=== PATIENT | female | born 1995 ===

== ENCOUNTER 2024-03-11 14:45 | Oncology outpatient (recurring) (ONCR) | payer MEDICARE, SELFPAY ==
[2024-03-01 09:49] LABS: Basophils % 0.4 %; Eosinophils # 0.1 10^3/uL (0.0-0.8); Eosinophils % 1.7 %; Hematocrit 39.2 % (36-47); Lymphocytes # 2.5 10^3/uL (0.8-4.8); Lymphocytes % 36.5 %; Mean Corpuscular HGB Conc 33.2 g/dL (30-55); Mean Corpuscular Hemoglobin 29.9 pg (27-33); Mean Corpuscular Volume 90.1 fl (85-98); Mean Platelet Volume 9.7 fL (7.4-10.4); Monocytes # 0.3 10^3/uL (0.2-0.9); Monocytes % 4.9 %; Neutrophils % 56.2 %; Nucleated Red Blood Cells % 0 %; Platelet Count 272 10^3/cmm (157-399); Red Blood Count 4.35 10^6/uL (3.85-5.65); White Blood Count 6.94 10^3/uL (3.29-11.43)
[2024-03-01 10:23] LABS: INR 0.91 (0.8-1.2); Partial Thromboplastin Time 27.7 SECONDS (23.9-36.7)
[2024-03-01 10:34] LABS: Alanine Aminotransferase 11 U/L (0-33); Albumin Level 4.2 g/dL (3.5-5.2); Alkaline Phosphatase 53 U/L (35-105); Anion Gap 17.3 (5-19); Aspartate Amino Transferase 13 U/L (0-32); Blood Urea Nitrogen 12 mg/dL (6-20); Calcium 9.3 mg/dL (8.5-10.5); Carbon Dioxide 24 mmol/L (22-29); Chloride 106 mmol/L (98-107); Globulin 3.3 g/dL (1.3-4.6); Glomerular Filtration Rate 149.1 mL/min (90-130); Glucose 85 mg/dL (65-115); Osmolality Calculated 295 mOsm/kg (285-295); Potassium 4.3 mmol/L (3.5-5.1); Sodium 143 mmol/L (136-145); Total Bilirubin 0.4 mg/dL (0.15-1.2); Total Protein 7.5 g/dL (6.6-8.7)
[2024-03-01 10:55] LABS: Iron 100 ug/dL (37-145); Percent Saturation 34.4 % (20-50); Total Iron Binding Capacity 290 mcg/dl; Unsaturated Iron Binding 190 ug/dL (112-347)
[2024-03-01 11:14] LABS: Ferritin 29 ng/mL (15-150)
[2024-03-04 03:10] LABS: B2 Glycoprotein I IGM AB <2.0 U/mL; CARDIOLIPIN AB (IGG) <2.0 GPL-U/mL; CARDIOLIPIN AB (IGM) <2.0 MPL-U/mL
[2024-03-11 17:19] LABS: Soluble Transferrin Receptor 1.13 mg/L (0.76-1.76)
[2024-03-12 23:04] LABS: Lupus DRVVT Confirm NEGATIVE (NEGATIVE); PTT-LA-Screen 37 sec (< OR = 40)
== END 2024-03-21 23:59 | disposition home or self-care (01) ==
PROVIDERS: Internal Medicine; Visit Provider Nurse Practitioner Family
DX: Z53.9 Procedure and treatment not carried out, unspecified reason (principal); Z87.59 Personal history of other complications of pregnancy, childbirth and the puerperium
CPT/HCPCS: 36415; 80053; 82728; 83540; 83550; 84238; 85025; 85210; 85610; 85613; 85730; 86146; 99203

== ENCOUNTER 2024-05-26 13:49 | Oncology outpatient (recurring) (ONCR) | payer MEDICARE, SELFPAY ==
[2024-05-26 14:30] LABS: Basophils % 0.5 %; Eosinophils # 0.2 10^3/uL (0.0-0.8); Eosinophils % 2.8 %; Hematocrit 36.4 % (36-47); Lymphocytes # 2.5 10^3/uL (0.8-4.8); Lymphocytes % 39.2 %; Mean Corpuscular HGB Conc 33.2 g/dL (30-55); Mean Corpuscular Hemoglobin 29.6 pg (27-33); Mean Platelet Volume 9.2 fL (7.4-10.4); Monocytes # 0.4 10^3/uL (0.2-0.9); Monocytes % 5.4 %; Neutrophils # 3.36 10^3/uL (1.8-7.7); Neutrophils % 51.9 %; Nucleated Red Blood Cells % 0 %; Platelet Count 257 10^3/cmm (157-399); Red Blood Count 4.09 10^6/uL (3.85-5.65); Red Cell Distribution Width 11.6 % (12.1-15.1); White Blood Count 6.46 10^3/uL (3.29-11.43)
[2024-05-28 16:39] LABS: Lupus DRVVT 1:1 Mix CORRECTED (CORRECTED); Lupus DRVVT Confirm POSITIVE (NEGATIVE); PTT-LA-Screen 35 sec (< OR = 40)
[2024-05-29 03:35] LABS: CARDIOLIPIN AB (IGA) <2.0 APL-U/mL; CARDIOLIPIN AB (IGG) <2.0 GPL-U/mL; CARDIOLIPIN AB (IGM) <2.0 MPL-U/mL
[2024-05-29 04:46] LABS: PROTEIN C, ACTIVITY 178 % normal (70-180)
[2024-05-29 05:20] LABS: Antithrombin III Activity 121 % normal (80-135)
[2024-05-31 13:55] LABS: Protein S Antigen, Total 141 % normal (70-140)
[2024-06-02 22:58] LABS: PROTHROMBIN (FACTOR II) 20210G NEGATIVE
[2024-06-03 19:45] LABS: Factor 5 Leiden Mutation NEGATIVE
[2024-06-06 16:04] LABS: Beta 2 Glycoprotein IGA <2.0 U/mL (<20.0); Beta 2 Glycoprotein IGG <2.0 U/mL (<20.0); Beta 2 Glycoprotein IGM <2.0 U/mL (<20.0)
== END 2024-06-21 23:59 | disposition home or self-care (01) ==
PROVIDERS: Internal Medicine Medical Oncology; Visit Provider Nurse Practitioner Family
DX: Z87.59 Personal history of other complications of pregnancy, childbirth and the puerperium
CPT/HCPCS: 36415; 81241; 85025; 85210; 85300; 85303; 85305; 85613; 85730; 86146; 86147

== ENCOUNTER 2024-07-20 12:40 | Oncology outpatient (recurring) (ONCR) | payer MEDICARE, SELFPAY | END 2024-07-22 23:59 | disposition home or self-care (01) | PROVIDERS: Visit Provider Nurse Practitioner Family | DX: Z53.9 Procedure and treatment not carried out, unspecified reason (principal); Z87.59 Personal history of other complications of pregnancy, childbirth and the puerperium | CPT/HCPCS: 99213 ==